=== PATIENT | male | born 1970 | race Hispanic/Latino ===

== ENCOUNTER 2018-08-25 18:05 | Inpatient (IN) | payer BC ==
[~2018-08-25] VITALS: Ht 162.6 cm; Wt 83.7 kg
[2018-08-25 18:38] LABS: BASOPHILS % 0.2 % (0.0-1.0); EOSINOPHILS # (AUTO) 0.2 (0.0-0.4); EOSINOPHILS % 1.1 % (0.0-6.0); HEMATOCRIT 48.1 % (38.2-49.6); HEMOGLOBIN 16.7 g/dL (14.0-18.0); LYMPHOCYTES # (AUTO) 1.8 (1.0-3.2); LYMPHOCYTES % 11.9 % (18.0-39.1); MEAN CORPUSCULAR HEMOGLOBIN 29.7 pg (28-32); MEAN CORPUSCULAR HGB CONC 34.7 g/dL (31-35); MEAN CORPUSCULAR VOLUME 85.4 fL (81-99); MONOCYTES # (AUTO) 0.7 (0.2-0.8); MONOCYTES % 4.4 % (4.4-11.3); NEUTROPHILS # (AUTO) 12.6 (2.1-6.9); PLATELET COUNT 309 x10e3/uL (140-360); RED BLOOD COUNT 5.63 x10e6/uL (4.3-5.7); RED CELL DISTRIBUTION WIDTH 12.7 % (11.7-14.4)
[2018-08-25 18:41] LABS: CLARITY,URINE HAZY (CLEAR); COLOR,URINE YELLOW (YELLOW); LEUKOCYTE ESTERASE ,URINE NEGATIVE (NEGATIVE); NITRITE,URINE NEGATIVE (NEGATIVE); PROTEIN,URINE DIPSTICK NEGATIVE (NEGATIVE)
[2018-08-25 18:42] LABS: BILIRUBIN,URINE NEGATIVE (NEGATIVE); KETONES,URINE NEGATIVE (NEGATIVE); URINE UROBILINOGEN 0.2 mg/dL (0.2 - 1)
[2018-08-25 18:44] LABS: BACTERIA,URINE FEW /HPF; EPITHELIAL CELLS,URINE FEW /LPF; RBC,URINE 0-5 /HPF (0-5); WBC,URINE (MAN) 0-5 /HPF (0-5)
[2018-08-25 18:58] LABS: ANION GAP 13.8 mmol/L (8-16); CALCIUM 9.8 mg/dL (8.4-10.2); CREATININE, SERUM 1.97 mg/dL (0.72-1.25); POTASSIUM 3.8 mmol/L (3.5-5.1)
[2018-08-25 18:59] LABS: MAGNESIUM 2.2 MG/DL (1.3-2.1)
[2018-08-25] MEDS ORDERED: SODIUM CHLORIDE 0.9% 1000ML 1,000 ML IV ONE (19:30)
[2018-08-25] MEDS ORDERED: IOPAMIDOL 370 MG/ML 200 ML INFUS..BTL INJ ONE (20:02)
[2018-08-25] MEDS ORDERED: SODIUM CHLORIDE 0.9% 50ML 50 ML ONE (20:02)
[2018-08-25] MEDS ORDERED: CIPROFLOXACIN 400 MG/D5W 200ML 200 ML IV STA (21:25)
[2018-08-25] MEDS ORDERED: ONDANSETRON HCL INJ 2MG/ML 2ML 2 MG/ML VIAL IV STA (21:27)
[2018-08-25] MEDS ORDERED: MORPHINE SULFATE INJ 4 MG/ML INJ 1ML IV STA (21:27)
[2018-08-25] MEDS ORDERED: DONNATAL/LIDOCAINE/MAALOX 30 ML SUSP PO ONE (21:30)
--- NOTE | 2018-08-25 21:42 | Diagnostic Imaging Report ---
EXAM: CT Abdomen and Pelvis WITH contrast INDICATION: ^ABD PAIN COMPARISON: None. TECHNIQUE: Abdomen and pelvis were scanned utilizing a multidetector helical scanner from the lung base to the pubic symphysis after administration of IV contrast. Coronal and sagittal reformations were obtained. Dose modulation, iterative reconstruction, and/or weight based adjustment of the mA/kV was utilized to reduce the radiation dose to as low as reasonably achievable. Routine protocol was performed. Scan was performed when during portal venous phase. IV CONTRAST: 100 mL of Isovue-370 ORAL CONTRAST: Water COMPLICATIONS: None RADIATION DOSE: Total DLP: 455.60 mGy*cm Estimated effective dose: (DLP x 0.015 x size factor) mSv CTDIvol has been reviewed. It is below the limits set by the Radiation Protocol Committee (RPC). FINDINGS: LINES and TUBES: None. LOWER THORAX: Unremarkable HEPATOBILIARY: No focal hepatic lesions. No biliary ductal dilation. GALLBLADDER: No radio-opaque stones or sludge. No wall thickening. SPLEEN: No splenomegaly. PANCREAS: No focal masses or ductal dilatation. ADRENALS: No adrenal nodules KIDNEYS/URETERS: Kidneys enhance symmetrically. No hydronephrosis. Mildly dilated left renal pelvis. No cystic or solid mass lesions. No stones. GI TRACT: No abnormal distention, wall thickening, or evidence of bowel obstruction. Colonic diverticulosis with mild pericolonic fat stranding in the left lower quadrant. There are also extraluminal scattered gas bubbles seen. Appendix is normal. PELVIC ORGANS/BLADDER: Unremarkable. LYMPH NODES: No lymphadenopathy. VESSELS: Unremarkable. Tortuous abdominal aorta. PERITONEUM / RETROPERITONEUM: No fluid. Small amount of pneumoperitoneum as described above. BONES: Bilateral L5 pars defects. Minimal anterolisthesis of L5 in relation to L4. SOFT TISSUES: Unremarkable. IMPRESSION: Microperforated diverticulitis. No evidence of abscess formation. Findings discussed with Dr. Caldera at 9:38 PM, on 08/25/2018. Signed by: Dr. Talib Robbins MD on 08/25/2018 9:38 PM
[2018-08-25] MEDS ORDERED: ACETAMINOPHEN 1000 MG/100 ML IV STA (21:51)
[2018-08-25] MEDS: SODIUM CHLORIDE 0.9% 1000ML 1,000 ML IV SCH (22:32)
[2018-08-25] MEDS: CEFEPIME 2 GM/NS 0.9% 100 ML 100 ML IV SCH (22:32)
[2018-08-25] MEDS: METRONIDAZOLE 500MG/NS 100ML 100 ML IV SCH (22:32)
--- OUTSIDE RECORDS SUMMARY | 2018-08-25 23:06 | XMS REPORT ---
Author [facility] Address Unknown Phone Unavailable Care Team Providers Care Tip Printer Name Role Phone Jayleen DALAL Unavailable Unavailable Problems This patient has no known problems. Allergies, Adverse Reactions, Alerts This patient has no known allergies or adverse reactions. Medications This patient has no known medications. Results Test Description Test Time Test Comments Text Results Atomic Results Result Comments CT ABDOMEN/PELVIS W 2018-08-25 21:28:00 [place] [id number] Patient Name: LOLITA HOLLIS MR #: [id number] : 1970 Age/Sex: 48/M Req #: [id number] [facility] Physician: Ordered by: ALISHA DALAL MD Report #: [id number] Location: ER Room/Bed: Procedure: [id number] CT/CT ABDOMEN/PELVIS W Exam Date: 08/25/18 Exam Time: 2052 REPORT STATUS: Signed EXAM: CT Abdomen and Pelvis WITH contrast INDICATION: ABD PAIN COMPARISON: None. TECHNIQUE: Abdomen and pelvis were scanned utilizing a multidetector helical scanner from the lung base to the pubic symphysis after administration of IV contrast. Coronal and sagittal reformations were obtained. Dose modulation, iterative reconstruction, and/or weight based adjustment of the mA/kV was utilized to reduce the radiation dose to as low as reasonably achievable. Routine protocol was performed. Scan was performed when during portal venous phase. IV CONTRAST: 100 mL of Isovue-370 ORAL CONTRAST: Water C OMPLICATIONS: None RADIATION DOSE: Total DLP: 455.60 mGy*cm Estimated effective dose: (DLP x 0.015 x size factor) mSv CTDIvol has been reviewed. It is below the limits set by the Radiation Protocol Committee (RPC). FINDINGS: LINES and TUBES: None. LOWER THORAX: Unremarkable HEPATOBILIARY: No focal hepatic lesions. No biliary ductal dilation. GALLBLADDER: No radio-opaque stones or sludge. No wall thickening. SPLEEN: No splenomegaly. PANCREAS: No focal masses or ductal dilatation. ADRENALS: No adrenal nodules KIDNEYS/URETERS: Kidneys enhance symmetrically. No hydronephrosis. Mildly dilated left renal pelvis. No cystic or solid mass lesions. No stones. GI TRACT: No abnormal distention, wall thickening, or evidence of bowel obstruction. Colonic diverticulosis with mild pericolonic fat stranding in the left lower quadrant. There are also extraluminal scattered gas bubbles seen. Appendix is normal. PELVIC ORGANS/BLADDER: Unremarkable. LYMPH NODES: No lymphadenopathy. VESSELS: Unremarkable. Tortuous abdominal aorta. PERITONEUM / RETROPERITONEUM: No fluid. Small amount of pneumoperitoneum as described above. BONES: Bilateral L5 pars defects. Minimal anterolisthesis of L5 in relation to L4. SOFT TISSUES: Unremarkable. IMPRESSION: Microperforated diverticulitis. No evidence of abscess formation. Findings discussed with Dr. Dalal at 9:38 PM, on 08/25/2018. Signed by: Dr. Talib King MD on 08/25/2018 9:38 PM Dictated By: TALIB KING MD 37 Transcribed By: KO on 08/25/182137 COPY TO: ALISHA DALAL MD
[2018-08-25 23:25] VITALS: BP 138/69
--- NOTE | 2018-08-25 23:30 | NUR ---
Received patient from ER. A&Ox4 & ambulatory w/o assist. Respirations even & unlabored, no distress noted. Patient is on NC @ 3L. IV to R AC 20g w/ fluids running. Patient c/o lower abdomen/pubic pain 07/25, refused any pain medication at this time. Will continue to monitor. Call light within reach, bed set to lowest position & side railsx2 raised. Family member at bedside.
--- NOTE | 2018-08-25 23:45 | NUR ---
Assisted patient to the bathroom, c/o severe onset pain to lower abdomen, 01/24, stated his pain gets worse w/ ambulation.
--- NOTE | 2018-08-25 23:50 | NUR ---
Assisted patient back to bed, patient was noted w/ facial grimacing & diaphoretic, also stated he was feeling hot and felt he was going to pass out. VS taken & WNL. Cool moist towel applied to forehead and pain medication was administered. Urinal was provided to reduce ambulation. Patient stated he hasn't felt like this since earlier today, he described the symptoms as sudden onset sharp razor like pains that radiates from his testicles up to his lower abdomen, he also stated he felt a burning sensation during urination. Patient stated Dr. Yeh is aware of these symptoms, it just doesn't happen as often. I did instruct patient to notify me if he felt his pain is different than before or is not managed with pain medication. Patient voices understanding.
[2018-08-25] MEDS: HYDROMORPHONE 2MG/ML 2 MG/ML ML IV PRN (23:55)
[2018-08-26 04:00] VITALS: BP 127/84
[2018-08-26] MEDS: HYDROMORPHONE 2MG/ML 2 MG/ML ML IV PRN ×7 (04:40→23:04)
[2018-08-26] MEDS: ONDANSETRON HCL INJ 2MG/ML 2ML 2 MG/ML VIAL IV PRN ×3 (04:40→19:36)
[2018-08-26] MEDS: METRONIDAZOLE 500MG/NS 100ML 100 ML IV SCH ×3 (05:56→18:05)
[2018-08-26 06:03] LABS: BASOPHILS % 0.2 % (0.0-1.0); EOSINOPHILS % 0.1 % (0.0-6.0); HEMATOCRIT 40.6 % (38.2-49.6); HEMOGLOBIN 13.9 g/dL (14.0-18.0); LYMPHOCYTES # (AUTO) 1.7 (1.0-3.2); LYMPHOCYTES % 8.3 % (18.0-39.1); MEAN CORPUSCULAR HEMOGLOBIN 29.7 pg (28-32); MEAN CORPUSCULAR HGB CONC 34.2 g/dL (31-35); MEAN CORPUSCULAR VOLUME 86.8 fL (81-99); NEUTROPHILS % 85.6 % (38.7-80.0); PLATELET COUNT 246 x10e3/uL (140-360); RED BLOOD COUNT 4.68 x10e6/uL (4.3-5.7); RED CELL DISTRIBUTION WIDTH 12.8 % (11.7-14.4)
--- NOTE | 2018-08-26 06:21 | NUR ---
Paged Dr. Yeh to update on patient status
[2018-08-26 06:36] LABS: ALBUMIN 3.3 g/dL (3.5-5.0); ANION GAP 11.3 mmol/L (8-16); CALCIUM 8.9 mg/dL (8.4-10.2); CREATININE, SERUM 1.65 mg/dL (0.72-1.25); POTASSIUM 4.3 mmol/L (3.5-5.1)
[2018-08-26] MEDS ORDERED: HYDROMORPHONE 1MG/1ML INJ IV PRN (07:45)
[2018-08-26 08:00] VITALS: BP 160/77
[2018-08-26] MEDS: SODIUM CHLORIDE 0.9% 1000ML 1,000 ML IV SCH ×2 (09:00→19:04)
[2018-08-26] MEDS: CEFEPIME 2 GM/NS 0.9% 100 ML 100 ML IV SCH ×2 (11:05→22:15)
[2018-08-26 11:24] VITALS: BP 160/77
--- NOTE | 2018-08-26 11:24 | NUR ---
patient resting in bed, still have strong pain upper abdomen, medicated with PRN pain med, not in any distress. at bed side, Dr Felix had rounds
[2018-08-26 11:47] VITALS: BP 161/86
[2018-08-26] MEDS: ACETAMINOPHEN 325 MG TAB PO PRN (11:47)
[2018-08-26 16:00] VITALS: BP 135/76
[2018-08-26] MEDS: FAMOTIDINE 20 MG/2 ML VIAL IV SCH (16:50)
--- NOTE | 2018-08-26 17:18 | Consultation ---
DATE OF CONSULTATION: 08/26/2018 CHIEF COMPLAINT: Abdominal pain. HISTORY OF PRESENT ILLNESS: The patient is a 48-year-old male with 2-day history of sudden onset of abdominal pain, lower abdomen, radiating down to the testicle. The patient had nausea, but no vomiting, no diarrhea. Subjective fever. PAST MEDICAL HISTORY: Unremarkable. PAST SURGICAL HISTORY: No previous surgery. ALLERGIES: THE PATIENT HAS NO DRUG ALLERGIES. SOCIAL HABITS: He denies smoking, alcohol abuse. REVIEW OF SYSTEMS: No chest pain or shortness of breath. PHYSICAL EXAMINATION: VITAL SIGNS: Stable. Low-grade temperature 100. GENERAL: He is awake, alert, in moderate discomfort. HEENT: Sclera anicteric. NECK: Supple. LUNGS: Clear. HEART: Regular rate and rhythm. ABDOMEN: Mildly distended with guarding, tenderness and rebound in the lower abdomen, more on the left than the right. LABORATORY DATA: White cell count 19,000, hemoglobin of 14, and creatinine 1.5. CT scan show left lower quadrant diverticulitis with extraluminal gas bubbles suggestive of microperforation. ASSESSMENT: Perforated diverticulitis with no abscess as yet. PLAN: IV hydration, antibiotics. We will follow. Best Yeh MD DNVinicio/MODL /[id number]
--- NOTE | 2018-08-26 18:20 | NUR ---
patient resting in bed, still have on pain 09/24, paged to enquire Dr Yeh regarding any procedure tomorrow
[2018-08-26 20:00] VITALS: BP_SYST 135; BP_SYST 143; BP_DIAS 76; BP_DIAS 91
--- NOTE | 2018-08-26 20:00 | NUR ---
INITIAL ASSESSMENT COMPLETE, CALL LIGHT IN REACH, FAMILY AT BEDSIDE, PT EYES CLOSED, STATES PAIN 9/10, BURNING IN ABD, PAIN MEDICATIONS GIVEN, ZOFRAN GIVEN FOR NAUSEA, SKIN INTACT, IV INFUSING, NO EDEMA NOTED, NO OTHER NEEDS
--- NOTE | 2018-08-26 23:45 | NUR ---
PT HAS TEMP OF 103.0, CALLED [facility] TO GET ORDERS FOR TYLENOL IV, PT IS NPO
[2018-08-27] VITALS (7 sets, daily range): BP systolic 158–190; BP diastolic 86–97
[2018-08-27] MEDS: HYDRALAZINE HCL 20 MG/ML VIAL IV PRN ×5 (00:50→18:38)
[2018-08-27] MEDS: HYDROMORPHONE 2MG/ML 2 MG/ML ML IV PRN ×4 (04:45→21:59)
--- NOTE | 2018-08-27 04:45 | NUR ---
PT AWAKE NOW, SEVERE PAIN TO RIGHT SIDE OF RIB CAGE, STATES IT IS BURNING, THROBBING, NOT A SHARP PAIN, O2 SAT 96% ON ROOM AIR, LUNG SOUNDS CLEAR, TOLD TO RELAX AND TAKE DEEP BREATHS, IV INFUSING.
[2018-08-27] MEDS: SODIUM CHLORIDE 0.9% 1000ML 1,000 ML IV SCH (04:46)
[2018-08-27] MEDS: METRONIDAZOLE 500MG/NS 100ML 100 ML IV SCH ×5 (05:44→23:53)
[2018-08-27 06:14] LABS: BASOPHILS % 0.2 % (0.0-1.0); EOSINOPHILS # (AUTO) 0.1 (0.0-0.4); EOSINOPHILS % 0.3 % (0.0-6.0); HEMATOCRIT 42.3 % (38.2-49.6); HEMOGLOBIN 13.8 g/dL (14.0-18.0); LYMPHOCYTES % 5.9 % (18.0-39.1); MEAN CORPUSCULAR HEMOGLOBIN 29.3 pg (28-32); MEAN CORPUSCULAR HGB CONC 32.6 g/dL (31-35); MEAN CORPUSCULAR VOLUME 89.8 fL (81-99); MONOCYTES # (AUTO) 0.8 (0.2-0.8); MONOCYTES % 4.7 % (4.4-11.3); NEUTROPHILS # (AUTO) 14.7 (2.1-6.9); NEUTROPHILS % 88.4 % (38.7-80.0); PLATELET COUNT 217 x10e3/uL (140-360); RED BLOOD COUNT 4.71 x10e6/uL (4.3-5.7); RED CELL DISTRIBUTION WIDTH 12.7 % (11.7-14.4)
[2018-08-27 06:29] LABS: ANION GAP 13.6 mmol/L (8-16); CREATININE, SERUM 1.32 mg/dL (0.72-1.25); MAGNESIUM 1.7 MG/DL (1.3-2.1); POTASSIUM 3.6 mmol/L (3.5-5.1)
[2018-08-27 06:45] LABS: B-TYPE NATRIURETIC PEPTIDE2 61.6 pg/mL (0-100)
--- NOTE | 2018-08-27 06:46 | NUR ---
PT EASILY AWAKE, NO DISTRESS NOTED AT THIS TIME, IV INFUSING, VS STABLE, CALL LIGHT IN REACH
--- NOTE | 2018-08-27 07:50 | NUR ---
PATIENT IN BED RESTING WITH NO RESPIRATORY DISTRESS. C/O PAIN TO ABDOMEN, PAIN MEDICATION GIVEN ORDERED. BED IN LOWER POSITION, CALL LIGHT AT REACH.
[2018-08-27] MEDS: FAMOTIDINE 20 MG/2 ML VIAL IV SCH ×2 (07:56→16:30)
[2018-08-27] MEDS ORDERED: ACETAMINOPHEN 1000 MG/100 ML IV NR (08:00)
[2018-08-27] MEDS ORDERED: DIATRIZOATE MEGL/DIATRIZOA SOD 30 ML BTL PO ONE (08:11)
--- NOTE | 2018-08-27 09:29 | Diagnostic Imaging Report ---
EXAMINATION: CT of the abdomen and pelvis with contrast. TECHNIQUE: Spiral CT images of the abdomen and pelvis were performed from the lung bases to the lesser trochanters after the intravenous administration of 100 cc Isovue-370. Coronal and sagittal reformatted images were obtained. COMPARISON: CT abdomen and pelvis with contrast 08/25/2018 CLINICAL HISTORY:Perforated diverticulitis DISCUSSION: ABDOMEN/PELVIS: LOWER THORAX:Minimal linear atelectasis in the lingula and dependent lower lobes. HEPATOBILIARY: No focal hepatic lesions. No intra-or extrahepatic biliary ductal dilation. The gallbladder is normal. SPLEEN: No splenomegaly. PANCREAS: No focal masses or ductal dilatation. ADRENALS: No adrenal nodules. KIDNEYS/URETERS: No hydronephrosis, stones, or solid mass lesions. PELVIC ORGANS/BLADDER: Urinary bladder, prostate, and seminal vesicles appear normal. PERITONEUM/RETROPERITONEUM: Substantial interval increase in pneumoperitoneum relative to 08/25/2018, with multiple foci of free air along the anterior hepatic margin and anterior aspect of the peritoneal cavity. There is an irregularly shaped extraluminal collection of gas along the previously described inflamed segment of sigmoid colon measuring approximately 5 cm transversely as seen on series 2 image 60. Trace free pelvic fluid. LYMPH NODES: No pelvic sidewall, retroperitoneal, or mesenteric lymphadenopathy. VESSELS: Abdominal aorta, major branch vessels, and iliac arterial systems are well-visualized and patent. Portal vein, splenic vein, and central superior mesenteric vein are patent. GI TRACT: Wall thickening and adjacent inflammation of the sigmoid colon, with marked interval increase in pneumoperitoneum as discussed above. Regional inflammatory change has also markedly increased, with concentric wall thickening of distal loops of ileum in the right lower quadrant, for example on series 2 image 64. Inflammatory fat stranding extending superiorly towards the mesenteric root has also worsened. No discrete, drainable fluid collection. BONES AND SOFT TISSUE: Bilateral L5 pars interarticularis defects again noted. No soft tissue abnormalities. IMPRESSION: Perforated sigmoid diverticulitis with marked interval increase in pneumoperitoneum and reactive low abdominal inflammation relative to 08/25/2018, now involving multiple loops of distal ileum. No drainable abscess. Findings were discussed by telephone with Dr. Yeh at 9:20 AM 08/27/2018. Signed by: Dr. Best Santos M.D. on 08/27/2018 9:26 AM
[2018-08-27] MEDS: CEFEPIME 2 GM/NS 0.9% 100 ML 100 ML IV SCH ×2 (11:00→21:45)
--- NOTE | 2018-08-27 11:18 | NUR ---
CALL RECEIVED FROM DR WOLFE STATING THAT PATIENT WILL HAVE SURGERY THIS AFTERNOON. PATIENT NOTIFIED, CONSENT SIGNED. IN BED WITH CALL LIGHT AT REACH.
[2018-08-27] MEDS: ONDANSETRON HCL INJ 2MG/ML 2ML 2 MG/ML VIAL IV PRN ×2 (13:57→21:59)
--- NOTE | 2018-08-27 14:15 | NUR ---
PATIENT OFF UNIT TO OR.
[2018-08-27] MEDS ORDERED: ACETAMINOPHEN 1000 MG/100 ML 100 ML IV ONE (15:18)
[2018-08-27] MEDS ORDERED: GLYCOPYRROLATE INJ 1MG/ 5 ML SYR ONE (18:15)
[2018-08-27] MEDS ORDERED: NEOSTIGMINE 5 MG/5ML SYR ONE (18:15)
[2018-08-27] MEDS ORDERED: DEXAMETHASONE SOD PHOS INJ 4 MG/ML VIAL ONE (18:15)
[2018-08-27] MEDS ORDERED: SEVOFLURANE INHAL SOLN 250 ML PEN BTL ONE (18:15)
[2018-08-27] MEDS ORDERED: ROCURONIUM BROMIDE 10 MG/ML 5ML VIAL ONE (18:15)
[2018-08-27] MEDS ORDERED: ACETAMINOPHEN 1000 MG/100 ML IV ONE ×2 (18:15)
[2018-08-27] MEDS ORDERED: PROPOFOL IV EMULSION 10 MG/ML 20 ML VIAL ONE (18:15)
[2018-08-27] MEDS ORDERED: ONDANSETRON HCL INJ 2MG/ML 2ML 2 MG/ML VIAL ONE (18:15)
[2018-08-27] MEDS ORDERED: PHENYLEPHRINE HCL 1% 10 MG/ML VIAL ONE (18:15)
[2018-08-27] MEDS ORDERED: LIDOCAINE HCL 2% LOCAL INJ 5 ML SDV VIAL INJ ONE (18:15)
[2018-08-27] MEDS ORDERED: CEFOXITIN SOD 1 GM VIAL ONE (18:15)
[2018-08-27] MEDS ORDERED: SUCCINYLCHOLINE 200 MG/10 ML SYR ONE (18:15)
--- NOTE | 2018-08-27 18:23 | NUR ---
PATIENT BACK TO UNIT FROM OR. REPORT RECEIVED FROM HAVEN BORJAS. PATIENT HAD A OPEN SIGMOID COLON RESECTION. ZAINAB DRAIN TO RIGHT ABDOMEN, JACIEL TO MID ABDOMEN, AND COLLECTOMY TO LEFT ABDOMEN. DRESSING DRY AND INTACT TO ABDOMEN. ABDOMEN SOFT, DENIED PAIN AT THIS TIME. MOSES CATHETER DRAINING CLEAR YELLOW URINE, NG TUBE TO RIGHT NOSTRIL CONNECTED TO LOW SUCTION. V/S 99.9-94-18-166/89 AND 95% AT 2L VIA N/C
[2018-08-27] MEDS ORDERED: IOPAMIDOL 370 MG/ML 200 ML INFUS..BTL INJ ONE (19:13)
[2018-08-27] MEDS ORDERED: SODIUM CHLORIDE 0.9% 50ML 50 ML ONE (19:13)
--- NOTE | 2018-08-27 22:55 | Consultation ---
DATE OF CONSULTATION: HISTORY OF PRESENT ILLNESS: This patient is a 48-year-old white male, who comes in with abdominal pain, which he had for a few days, getting progressively worse, and has fever and chills. The patient came in here, CT scan was done, and was found to have diverticulitis, perforated, and the pain was getting worse. A repeat CT scan showed there is an abscess, so he is going for surgery. The patient is currently on metronidazole and cefepime. PAST MEDICAL HISTORY: Denies. PAST SURGICAL HISTORY: Denies. ALLERGIES: ALLERGY TO PENICILLIN, BUT HE IS DOING WELL ON CEFEPIME. SOCIAL HISTORY: There is no smoking, drug abuse, or alcohol abuse. FAMILY HISTORY: Otherwise, unremarkable. PHYSICAL EXAMINATION: GENERAL: He is currently alert, oriented, does not seem in acute distress. VITAL SIGNS: Stable. Currently afebrile. HEENT: Normocephalic, not icteric. NECK: Supple. CHEST: Clear. HEART: S1 and S2. ABDOMEN: Soft. Diffuse tenderness. IMPRESSION: Diverticulitis with ruptured cefepime. We will await blood cultures. Await intraoperative cultures. Further recommendations to follow. MD PEDRO Dudley/NETO /[id number]
--- NOTE | 2018-08-27 23:39 | Operative Report ---
DATE OF PROCEDURE: 08/27/2018 SURGEON: Best Yeh MD PREOPERATIVE DIAGNOSIS: Perforated sigmoid diverticulitis. POSTOPERATIVE DIAGNOSIS: Perforated sigmoid diverticulitis. PROCEDURE: Sigmoid resection with end colostomy. GLOBAL CEO: None. ANESTHESIA: General. INDICATION FOR SURGERY: A 48-year-old male with abdominal pain for four days with CT scan evidence of a perforated sigmoid diverticulitis. The patient was placed on IV antibiotics for two days with persistent pain and fevers, which are worsening. Repeat CT scan showed increase fluid in the pelvis with worsening diverticulitis. The patient consented for sigmoid resection with possible end colostomy. DESCRIPTION OF THE PROCEDURE: The patient was brought to OR intubated. Abdomen was prepped and draped in sterile fashion. A supraumbilical incision is made and a 5 minute port inserted. Insufflation began. Laparoscopy examination revealed dilated loops of small bowel in the pelvis with purulent material seen in the pelvic cavity. At this point, the lower midline incision is then made going through the fascia entering the peritoneal cavity. The sigmoid colon is mobilized and there is perforation anteriorly in the sigmoid colon with spillage of fecal material and exudate in the pelvis. We proceeded to mobilize the sigmoid colon and transect the sigmoid colon proximal and distally with the BARBIE stapler and the mesentery with the LigaSure instrument. We then proceeded to wash out the pelvic and abdominal cavity of all contaminating fluid and pus. Loops of intestine, which is adherent to each other and partially obstructed without straightened out. There is some fibrin, no exudate on the bowel wall, which is removed. We then proceeded to perform a left lower quadrant colostomy opening by taking an ellipse of skin and subcu tissue in the left lower quadrant through the rectus muscle and the fascia was opened in a cruciate fashion. The underlying muscles split and posterior fascia opened in transverse direction. The left descending colon has been mobilized by dividing the white line of Toldt is then exteriorized to the ostomy site. A 19-[place] Collin drain placed in the pelvis and taken out through a separate stab wound incision in the right lower quadrant. The omentum was brought to cover the pelvic area. Fascia closure with a running #1 PDS and 0 Vicryl. Skin closed with staple. We then matured the ostomy site leak. Eversion of the colonic and to the skin with 3-0 Vicryl interrupted stitches. The ostomy bag is placed. The patient is then extubated, transported to recovery room. ESTIMATED BLOOD LOSS: 50 mL. MD ALVA Baird/NETO /[id number]
[2018-08-28] VITALS (10 sets, daily range): BP systolic 158–195; BP diastolic 79–97
[2018-08-28] MEDS: HYDROMORPHONE 2MG/ML 2 MG/ML ML IV PRN ×6 (01:16→20:11)
[2018-08-28] MEDS: ONDANSETRON HCL INJ 2MG/ML 2ML 2 MG/ML VIAL IV PRN ×3 (02:13→20:11)
[2018-08-28] MEDS: HYDRALAZINE HCL 20 MG/ML VIAL IV PRN ×4 (04:27→20:10)
[2018-08-28 06:19] LABS: BASOPHILS % 0.1 % (0.0-1.0); HEMATOCRIT 38.9 % (38.2-49.6); HEMOGLOBIN 13.1 g/dL (14.0-18.0); LYMPHOCYTES # (AUTO) 0.7 (1.0-3.2); LYMPHOCYTES % 4.4 % (18.0-39.1); MEAN CORPUSCULAR HEMOGLOBIN 29.3 pg (28-32); MEAN CORPUSCULAR HGB CONC 33.7 g/dL (31-35); MONOCYTES # (AUTO) 0.7 (0.2-0.8); MONOCYTES % 3.9 % (4.4-11.3); NEUTROPHILS # (AUTO) 15.5 (2.1-6.9); NEUTROPHILS % 90.9 % (38.7-80.0); PLATELET COUNT 231 x10e3/uL (140-360); RED BLOOD COUNT 4.47 x10e6/uL (4.3-5.7); RED CELL DISTRIBUTION WIDTH 13.2 % (11.7-14.4)
[2018-08-28 06:37] LABS: ANION GAP 11.9 mmol/L (8-16); BLOOD UREA NITROGEN 12 mg/dL (7-26); BUN/CREATININE RATIO 10 (6-25); CALCIUM 9.4 mg/dL (8.4-10.2); CARBON DIOXIDE 23 mmol/L (22-29); CHLORIDE 105 mmol/L (98-107); CREATININE, SERUM 1.15 mg/dL (0.72-1.25); EST GLOMERULAR FILTRATION RATE > 60 ML/MIN (60-); GLUCOSE 116 mg/dL (74-118); MAGNESIUM 2.1 MG/DL (1.3-2.1); POTASSIUM 3.9 mmol/L (3.5-5.1); SODIUM 136 mmol/L (136-145)
[2018-08-28] MEDS: METRONIDAZOLE 500MG/NS 100ML 100 ML IV SCH ×3 (07:12→18:35)
--- NOTE | 2018-08-28 07:35 | NUR ---
PATIENT IN BED RESTING WITH S/S OF DISTRESS. C/O PAIN TO ABDOMEN, PAIN MEDICATION GIVEN ORDERED. ZAINAB DRAIN TO RIGHT ABDOMEN, JACIEL TO MID ABDOMEN AND COLOSTOMY BAG TO LEFT ABDOMEN. DRESSING DRY AND INTACT TO ABDOMEN. MOSES CATHETER DRAINING CLEAR YELLOW URINE. NG TUBE DRAINING GREENISH FLUID. IV FLUID IN PROGRESS. BED IN LOWER POSITION, CALL LIGHT AT REACH. FAMILY AT BED SIDE.
[2018-08-28] MEDS: FAMOTIDINE 20 MG/2 ML VIAL IV SCH ×2 (07:51→16:54)
[2018-08-28] MEDS: SODIUM CHLORIDE 0.9% 1000ML 1,000 ML IV SCH (08:30)
[2018-08-28] MEDS: CEFEPIME 2 GM/NS 0.9% 100 ML 100 ML IV SCH ×2 (10:10→21:41)
[2018-08-28] MEDS ORDERED: LORAZEPAM INJ 2 MG/ML VIAL IV PRN (11:00)
--- NOTE | 2018-08-28 11:13 | NUR ---
PATIENT C/O NAUSEA, PRN ZOFRAN GIVEN. PATIENT STATED THAT HE IS FEELING BETTER AT THIS TIME.
--- NOTE | 2018-08-28 15:38 | NUR ---
MOSES CATHETER DISCONTINUED ORDERED. PATIENT IS ON IV FLUID, DUE TO VOID. AMBULATED TO THE RESTROOM AND BACK TO BED. CALL LIGHT AT REACH.
--- NOTE | 2018-08-28 18:28 | NUR ---
120 CC OF SEROSANGUINEOUS FLUID REMOVED FROM ZAINAB DRAIN. PATIENT IN BED WITH CALL LIGHT AT REACH.
--- NOTE | 2018-08-28 19:30 | NUR ---
pt voided 200ml dark yellow urine into urinal
[2018-08-29] VITALS (7 sets, daily range): BP systolic 163–199; BP diastolic 84–96
[2018-08-29] MEDS: HYDRALAZINE HCL 20 MG/ML VIAL IV PRN ×5 (00:15→21:55)
[2018-08-29] MEDS: METRONIDAZOLE 500MG/NS 100ML 100 ML IV SCH ×4 (00:33→18:00)
[2018-08-29] MEDS: HYDROMORPHONE 2MG/ML 2 MG/ML ML IV PRN ×3 (00:33→07:57)
[2018-08-29] MEDS: SODIUM CHLORIDE 0.9% 1000ML 1,000 ML IV SCH (01:45)
[2018-08-29] MEDS: ONDANSETRON HCL INJ 2MG/ML 2ML 2 MG/ML VIAL IV PRN (04:02)
[2018-08-29 06:45] LABS: BASOPHILS % 0.1 % (0.0-1.0); EOSINOPHILS % 0.1 % (0.0-6.0); HEMATOCRIT 36.2 % (38.2-49.6); HEMOGLOBIN 12.5 g/dL (14.0-18.0); LYMPHOCYTES # (AUTO) 1.1 (1.0-3.2); LYMPHOCYTES % 8.2 % (18.0-39.1); MEAN CORPUSCULAR HEMOGLOBIN 29.8 pg (28-32); MEAN CORPUSCULAR HGB CONC 34.5 g/dL (31-35); MEAN CORPUSCULAR VOLUME 86.4 fL (81-99); MONOCYTES # (AUTO) 0.9 (0.2-0.8); MONOCYTES % 6.5 % (4.4-11.3); NEUTROPHILS # (AUTO) 11.6 (2.1-6.9); NEUTROPHILS % 84.4 % (38.7-80.0); PLATELET COUNT 303 x10e3/uL (140-360); RED BLOOD COUNT 4.19 x10e6/uL (4.3-5.7); RED CELL DISTRIBUTION WIDTH 13.7 % (11.7-14.4)
[2018-08-29 07:14] LABS: ANION GAP 9.2 mmol/L (8-16); BLOOD UREA NITROGEN 14 mg/dL (7-26); BUN/CREATININE RATIO 14 (6-25); CALCIUM 8.8 mg/dL (8.4-10.2); CARBON DIOXIDE 24 mmol/L (22-29); CHLORIDE 107 mmol/L (98-107); CREATININE, SERUM 0.99 mg/dL (0.72-1.25); EST GLOMERULAR FILTRATION RATE > 60 ML/MIN (60-); GLUCOSE 112 mg/dL (74-118); MAGNESIUM 2.2 MG/DL (1.3-2.1); POTASSIUM 3.2 mmol/L (3.5-5.1); SODIUM 137 mmol/L (136-145)
--- NOTE | 2018-08-29 07:30 | NUR ---
Pt in bed aox4 and able to verbalize needs. NGtube to right nare in place and patent. It is connected to continuous suction. Dressing to midabdomen is dry and intact. ZAINAB drain to RLQ is with serosanguineous fluid.
[2018-08-29] MEDS: FAMOTIDINE 20 MG/2 ML VIAL IV SCH ×2 (07:55→16:13)
[2018-08-29] MEDS: ACETAMINOPHEN 325 MG TAB PO PRN ×2 (08:05→14:16)
[2018-08-29] MEDS ORDERED: AMLODIPINE BESYLATE 10 MG TAB PO SCH (09:00)
[2018-08-29] MEDS: CEFEPIME 2 GM/NS 0.9% 100 ML 100 ML IV SCH ×2 (09:06→21:55)
--- NOTE | 2018-08-29 09:30 | NUR ---
NGtube removed per physician orders. Pt is to remain NPO with small sips of water and ice chips.
[2018-08-29] MEDS ORDERED: POTASSIUM CHLORIDE 20MEQ/100ML 200 ML IV ONE (10:15)
[2018-08-29] MEDS ORDERED: D5NS/KCL 20MEQ 1,000 ML IV SCH (10:30)
[2018-08-29] MEDS: HYDROCODONE/APAP 5MG-325MG TAB PO PRN ×2 (16:31→22:33)
[2018-08-29] MEDS: HYDROCHLOROTHIAZIDE 25 MG TAB PO SCH (16:34)
--- NOTE | 2018-08-29 18:40 | NUR ---
Pt in bed. Continues on IVF at 50ml/hr and well tolerated. Pt states headache has improved since new medications was given. ZAINAB drain to right LQ had 30ml serosanguineous fluid.
[2018-08-30] VITALS (8 sets, daily range): BP systolic 134–178; BP diastolic 82–96
[2018-08-30] MEDS: METRONIDAZOLE 500MG/NS 100ML 100 ML IV SCH ×4 (00:41→17:13)
[2018-08-30] MEDS: HYDROCODONE/APAP 5MG-325MG TAB PO PRN ×2 (05:55→14:34)
[2018-08-30 06:30] LABS: BASOPHILS % 0.3 % (0.0-1.0); EOSINOPHILS # (AUTO) 0.1 (0.0-0.4); EOSINOPHILS % 0.6 % (0.0-6.0); HEMATOCRIT 39.1 % (38.2-49.6); HEMOGLOBIN 13.7 g/dL (14.0-18.0); LYMPHOCYTES # (AUTO) 1.2 (1.0-3.2); LYMPHOCYTES % 12.2 % (18.0-39.1); MEAN CORPUSCULAR HEMOGLOBIN 29.7 pg (28-32); MEAN CORPUSCULAR VOLUME 84.8 fL (81-99); MONOCYTES # (AUTO) 0.9 (0.2-0.8); MONOCYTES % 9.5 % (4.4-11.3); NEUTROPHILS # (AUTO) 7.2 (2.1-6.9); NEUTROPHILS % 76.4 % (38.7-80.0); PLATELET COUNT 332 x10e3/uL (140-360); RED BLOOD COUNT 4.61 x10e6/uL (4.3-5.7); RED CELL DISTRIBUTION WIDTH 13.4 % (11.7-14.4)
[2018-08-30 06:55] LABS: ANION GAP 11.9 mmol/L (8-16); BLOOD UREA NITROGEN 11 mg/dL (7-26); BUN/CREATININE RATIO 13 (6-25); CALCIUM 9.4 mg/dL (8.4-10.2); CARBON DIOXIDE 26 mmol/L (22-29); CHLORIDE 100 mmol/L (98-107); CREATININE, SERUM 0.86 mg/dL (0.72-1.25); EST GLOMERULAR FILTRATION RATE > 60 ML/MIN (60-); GLUCOSE 109 mg/dL (74-118); MAGNESIUM 2.2 MG/DL (1.3-2.1); SODIUM 135 mmol/L (136-145)
[2018-08-30 07:02] LABS: POTASSIUM 2.9 mmol/L (3.5-5.1)
--- NOTE | 2018-08-30 07:15 | NUR ---
The pt. was received in bed awake and alert with iv fluids infusing well. He questions when he will be allowed to eat and was advised that it is dependent upon the dr's evaluation and his bowel functionality. The pt. was given information about after care for the colostomy printed.
[2018-08-30] MEDS: FAMOTIDINE 20 MG/2 ML VIAL IV SCH ×2 (07:30→17:13)
[2018-08-30] MEDS ORDERED: POTASSIUM CHLORIDE 20MEQ/100ML 100 ML IV ONE ×2 (08:00→10:00)
[2018-08-30] MEDS: HYDROCHLOROTHIAZIDE 25 MG TAB PO SCH ×2 (08:52→17:13)
[2018-08-30] MEDS ORDERED: NIFEDIPINE CR 30 MG TAB PO SCH (09:00)
--- NOTE | 2018-08-30 10:00 | NUR ---
Dr. Yeh visited and diet increase received.
--- NOTE | 2018-08-30 11:00 | NUR ---
The pt. called to report pain at the iv site and for dressing Addendum: 08/30/18 at 1144 by Merari Elmore RN cont'd change. The dressing was changed at the incision and drain site. Th iv was re-sited to the right forearm
[2018-08-30] MEDS: CEFEPIME 2 GM/NS 0.9% 100 ML 100 ML IV SCH ×2 (11:39→22:15)
[2018-08-30] MEDS: HYDRALAZINE HCL 20 MG/ML VIAL IV PRN (11:39)
--- NOTE | 2018-08-30 11:44 | NUR ---
B/p reported 178 and was medicate for the same.
--- NOTE | 2018-08-30 13:30 | NUR ---
The pt. c/o headache and bp rechecked 162/94, th pt. was given norco and will continue to monitor the pt.
--- NOTE | 2018-08-30 16:12 | NUR ---
The pt's colostomy was leaking form the distal edge and was changed with pt. and family teaching initiated.
[2018-08-30] MEDS ORDERED: FENTANYL CITRATE/PF 100MCG/2 ML INJ ONE (17:16)
[2018-08-30] MEDS ORDERED: MIDAZOLAM HCL 2 MG/2 ML VIAL ONE (17:16)
--- NOTE | 2018-08-30 17:39 | NUR ---
Nutrition Screen Note RD Recommendation for Physician: -Rec ADAT to GI soft diet -RD provided education on low fiber diet (08/30). Plan of Care: RD following, monitoring for tolerance and adequacy, diet education Nutrition reason for involvement: NPO/ clear liquid x 5 days Primary Diagnose(s): Perforated sigmoid diverticulitis PMH: None Ht: 64in Wt: 183.56lb BMI: 31.5kg/m2 IBW: 130lb RD Assessment: (08/30) Chart reviewed. Labs and meds reviewed. 48yo M, who was admitted for abdominal pain. Abd/ pel CT showed perforated sigmoid diverticulitis. Colostomy bag was placed. NPO/clear liquid day 5. Visited pt in the room. Pt tolerated clear liquid. No complains of nausea or vomiting. Pt denied any chewing or swallowing difficulty. 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 RD provided education on low fiber diet; pt and verbalized understanding. Will continue to monitor and follow. Current Diet: clear liquid diet Malnutrition Evaluation (08/30) The patient does not meet criteria for a specified degree of malnutrition at this time. Will re-evaluate at follow-up as appropriate. Diet Education Needs Assessment: Diet education indicated, pt was agreeable. Learner(s): pt and Time spent: 30minutes Barriers: No barriers identified. Cultural/Language Modifications: No cultural/language modifications noted. Pt and speak Kuwaiti. Readiness: Pt eager to learn. Method: Handouts, explanation Topics: Colostomy nutrition therapy (low fiber diet, hydration, foods that cause gas/ odor/ diarrhea) Understanding/Compliance: Expect good understanding/compliance from pt. Will benefit from reinforcement. All questions have been answered. Nutrition Care Level: mod Signed: Caitlin Laura, , RD, LD
--- NOTE | 2018-08-30 19:20 | NUR ---
Patient visited in room during nursing rounds. Patient alert and oriented x3. No distress or discomfort noted. On scheduled IV antibiotics. S/P colon resection with Left colostomy. Dressing on abd clean and dry. ZAINAB drain noted on RLQ abd. Call herring within reach. Will monitor closely.
[2018-08-30] MEDS ORDERED: SODIUM CHLORIDE 0.9% 250ML 250 ML ONE (22:18)
[2018-08-31] VITALS (8 sets, daily range): BP systolic 128–168; BP diastolic 73–85
[2018-08-31] MEDS: METRONIDAZOLE 500MG/NS 100ML 100 ML IV SCH ×5 (00:14→23:13)
--- NOTE | 2018-08-31 02:10 | NUR ---
Patient complained of some pressure on area of colostomy. Colostomy bag appear full of gas. Bag was decompressed and gas was released. Pt stated felt some relief after gas was released.
[2018-08-31 05:44] LABS: BASOPHILS % 0.4 % (0.0-1.0); EOSINOPHILS # (AUTO) 0.2 (0.0-0.4); EOSINOPHILS % 2.3 % (0.0-6.0); HEMATOCRIT 40.4 % (38.2-49.6); HEMOGLOBIN 14.2 g/dL (14.0-18.0); LYMPHOCYTES # (AUTO) 1.6 (1.0-3.2); LYMPHOCYTES % 15.6 % (18.0-39.1); MEAN CORPUSCULAR HEMOGLOBIN 29.7 pg (28-32); MEAN CORPUSCULAR HGB CONC 35.1 g/dL (31-35); MEAN CORPUSCULAR VOLUME 84.5 fL (81-99); MONOCYTES # (AUTO) 1.1 (0.2-0.8); MONOCYTES % 10.6 % (4.4-11.3); NEUTROPHILS # (AUTO) 6.8 (2.1-6.9); NEUTROPHILS % 67.3 % (38.7-80.0); PLATELET COUNT 393 x10e3/uL (140-360); RED BLOOD COUNT 4.78 x10e6/uL (4.3-5.7); RED CELL DISTRIBUTION WIDTH 13.1 % (11.7-14.4)
[2018-08-31 06:17] LABS: BLOOD UREA NITROGEN 12 mg/dL (7-26); BUN/CREATININE RATIO 11 (6-25); CALCIUM 9.6 mg/dL (8.4-10.2); CARBON DIOXIDE 27 mmol/L (22-29); CHLORIDE 99 mmol/L (98-107); CREATININE, SERUM 1.14 mg/dL (0.72-1.25); EST GLOMERULAR FILTRATION RATE > 60 ML/MIN (60-); GLUCOSE 116 mg/dL (74-118); MAGNESIUM 2.2 MG/DL (1.3-2.1); SODIUM 136 mmol/L (136-145)
--- NOTE | 2018-08-31 07:10 | NUR ---
PATIENT IS IN STABLE CONDITION WITH NO S/S OF RESPIRATORY DISTRESS. NO PAIN VOICED. IV ANTIBIOTICS INFUSING. COLOSTOMY TO LLQ AND ZAINAB DRAIN TO RLQ; INCISION WITH JÚNIOR NOTED TO MID-ABD AREA WITH JACIEL. PRESENT IN ROOM. CALL LIGHT IS WITHIN REACH, PATIENT INSTRUCTED TO CALL FOR ASSISTANCE NEEDED.
[2018-08-31] MEDS ORDERED: POTASSIUM CHLORIDE 20 MEQ TAB CR PO NR (09:00)
[2018-08-31] MEDS: HYDROCHLOROTHIAZIDE 25 MG TAB PO SCH ×2 (09:12→17:10)
[2018-08-31] MEDS: FAMOTIDINE 20 MG/2 ML VIAL IV SCH ×2 (09:12→17:10)
[2018-08-31] MEDS ORDERED: LORAZEPAM INJ 2 MG/ML VIAL IV PRN (09:15)
[2018-08-31] MEDS: NIFEDIPINE CR 30 MG TAB PO SCH (09:18)
[2018-08-31] MEDS: METOPROLOL TARTRATE 25 MG TAB PO SCH ×3 (09:18→17:10)
[2018-08-31] MEDS: CEFEPIME 2 GM/NS 0.9% 100 ML 100 ML IV SCH ×2 (11:14→21:13)
[2018-08-31] MEDS ORDERED: SODIUM CHLORIDE 0.9% 250ML 250 ML ONE (12:03)
--- NOTE | 2018-08-31 14:07 | NUR ---
EDUCATION MATERIAL (COLOSTOMY ADULT, COLOSTOMY-ADULT CARE AFTER, COLOSTOMY HOME GUIDE, ) PROVIDED TO PATIENT ON COLOSTOMY CARE.
--- NOTE | 2018-08-31 19:06 | NUR ---
PATIENT IS IN STABLE CONDITION WITH NO S/S OF RESPIRATORY DISTRESS. NO PAIN VOICED. TELEMETRY APPLIED. PRESENT IN ROOM. CALL LIGHT IS WITHIN REACH, PATIENT INSTRUCTED TO CALL FOR ASSISTANCE NEEDED. BEDSIDE REPORT GIVEN TO ONCOMING NURSE.
--- NOTE | 2018-08-31 19:15 | NUR ---
patient received awake, alert, lying quietly in bed. no c/o pain noted. pm assessment complete. patient instructed to call for assistance when needed.
--- NOTE | 2018-08-31 19:18 | NUR ---
CALL PLACED OUT TO DR. WOLFE TO CLARIFY GI SOFT DIET ORDER START DATE. NIGHT NURSE INFORMED OF CALL.
[2018-08-31] MEDS ORDERED: MELATONIN 5 MG TABLET PO SCH (21:00)
[2018-09-01 00:48] VITALS: BP 118/68
[2018-09-01 03:20] LABS: BASOPHILS # (AUTO) 0.1 (0.0-0.1); BASOPHILS % 0.6 % (0.0-1.0); EOSINOPHILS # (AUTO) 0.4 (0.0-0.4); EOSINOPHILS % 3.2 % (0.0-6.0); HEMATOCRIT 41.9 % (38.2-49.6); HEMOGLOBIN 14.5 g/dL (14.0-18.0); LYMPHOCYTES # (AUTO) 1.9 (1.0-3.2); LYMPHOCYTES % 16.4 % (18.0-39.1); MEAN CORPUSCULAR HEMOGLOBIN 29.4 pg (28-32); MEAN CORPUSCULAR HGB CONC 34.6 g/dL (31-35); MONOCYTES # (AUTO) 1.2 (0.2-0.8); MONOCYTES % 10.1 % (4.4-11.3); NEUTROPHILS # (AUTO) 7.4 (2.1-6.9); NEUTROPHILS % 63.7 % (38.7-80.0); PLATELET COUNT 441 x10e3/uL (140-360); RED BLOOD COUNT 4.93 x10e6/uL (4.3-5.7); RED CELL DISTRIBUTION WIDTH 13.2 % (11.7-14.4)
[2018-09-01 03:47] LABS: ANION GAP 13.4 mmol/L (8-16); BLOOD UREA NITROGEN 12 mg/dL (7-26); BUN/CREATININE RATIO 12 (6-25); CALCIUM 9.4 mg/dL (8.4-10.2); CARBON DIOXIDE 24 mmol/L (22-29); CHLORIDE 103 mmol/L (98-107); CREATININE, SERUM 1.01 mg/dL (0.72-1.25); EST GLOMERULAR FILTRATION RATE > 60 ML/MIN (60-); GLUCOSE 107 mg/dL (74-118); POTASSIUM 3.4 mmol/L (3.5-5.1); SODIUM 137 mmol/L (136-145)
[2018-09-01 05:16] VITALS: BP 127/73
[2018-09-01] MEDS: METRONIDAZOLE 500MG/NS 100ML 100 ML IV SCH ×2 (05:33→11:13)
--- NOTE | 2018-09-01 06:50 | NUR ---
PATIENT IS AWAKE AND IN STABLE CONDITION WITH NO S/S OF RESPIRATORY DISTRESS. PATIENT DENIES PAIN. COLOSTOMY TO LLQ AND ZAINAB DRAIN TO RLQ; DRESSING TO MID-ABD IS DRY AND INTACT. TELEMETRY APPLIED. PRESENT IN ROOM. CALL LIGHT IS WITHIN REACH, PATIENT INSTRUCTED TO CALL FOR ASSISTANCE NEEDED.
[2018-09-01] MEDS: FAMOTIDINE 20 MG/2 ML VIAL IV SCH (08:02)
[2018-09-01] MEDS: HYDROCHLOROTHIAZIDE 25 MG TAB PO SCH (08:02)
[2018-09-01] MEDS: METOPROLOL TARTRATE 25 MG TAB PO SCH (08:03)
[2018-09-01] MEDS: NIFEDIPINE CR 30 MG TAB PO SCH (08:03)
--- NOTE | 2018-09-01 08:03 | NUR ---
PATIENT HAD TELEMETRY REMOVED SO HE COULD SHOWER. PATIENT IS OUT OF THE SHOWER AND REFUSES TO HAVE TELEMETRY LEADS PLACED ON HIM AGAIN. PATIENT EDUCATED ON IMPORTANCE OF TELEMETRY MONITORING. MORNING MEDICATIONS ADMINISTERED TO PATIENT.
--- NOTE | 2018-09-01 08:05 | NUR ---
DRESSINGS APPLIED FOR PATIENT OVER MID-ABD JÚNIOR/JACIEL AND AROUND ZAINAB DRAIN SITE.
[2018-09-01 08:58] VITALS: BP 151/78
[2018-09-01 09:03] VITALS: BP 151/78
--- NOTE | 2018-09-01 10:45 | NUR ---
JACIEL AND ZAINAB DRAIN REMOVED PER DR. WOLFE'S ORDER. ZAINAB HAD 10CC OUTPUT PRIOR TO REMOVAL.
[2018-09-01 11:49] VITALS: BP 139/63
[2018-09-01] MEDS ORDERED: POTASSIUM CHLORIDE 20 MEQ TAB CR PO ONE (12:26)
[2018-09-01] MEDS ORDERED: ESIDRIX25 MG PO (12:31)
[2018-09-01] MEDS ORDERED: METRONIDAZOLE500 MG PO (12:31)
[2018-09-01] MEDS ORDERED: NIFEDIPINE ER30 M1 PO (12:31)
[2018-09-01] MEDS ORDERED: LOPRESSOR25 MG PO (12:31)
[2018-09-01] MEDS ORDERED: CEFDINIR300 MG PO (12:31)
[2018-09-01] MEDS ORDERED: HYDROCHLOROTHIA25 MG PO (12:34)
[2018-09-01] MEDS ORDERED: POTASSIUM CHLO20 ME1 PO (12:34)
[2018-09-01] MEDS: CEFEPIME 2 GM/NS 0.9% 100 ML 100 ML IV SCH (12:44)
[2018-09-01] MEDS ORDERED: TYLENOL # 31 EA PO (13:09)
--- NOTE | 2018-09-01 14:56 | NUR ---
PATIENT DISCHARGE HOME- PATIENT OFF THE UNIT AT 1448 PER AMBULATION ACCOMPANIED BY RN TO THE PATIENT'S VEHICLE. PATIENT IN STABLE CONDITION WITH NO S/S OF RESPIRATORY DISTRESS. NO PAIN VOICED. COLOSTOMY BAG INTACT TO LLQ. DRESSINGS APPLIED TO LOWER MID-ABD SITE (BELOW JÚNIOR) AND RLQ SITE. DISCHARGE TEACHING, INSTRUCTIONS, AND MEDICATIONS GIVEN TO THE PATIENT. ALL PERSONAL ITEMS TAKEN WITH THE PATIENT AND HIS .
--- NOTE | 2018-09-02 06:17 | Discharge Summary ---
ADMISSION DIAGNOSES: Microperforated diverticulitis with sepsis, obesity, acute kidney injury. DISCHARGE DIAGNOSES: Microperforated diverticulitis with sepsis, obesity, acute kidney injury, anxiety, hypokalemia, status post sigmoid resection with end colostomy. Rule out CHF, sinus bradycardia and sinus tachycardia. HISTORY: None. SURGICAL HISTORY: None. FAMILY HISTORY: The patient's dad had diabetes. SOCIAL HISTORY: The patient admits to occasional alcohol use on weekends. HOSPITAL COURSE: A 48-year-old male complains of constant sharp abdominal pain that began Monday night. He had associated nausea, but denies vomiting or diarrhea. He complains of subjective chills, but did not take a temperature. Pain is worsened with urination and not improved by anything. On admission, the patient was started on cefepime and Flagyl. CT of the abdomen showed microperforated diverticulitis. No evidence of abscess formation. Surgery was consulted. The patient had an NG tube placed, IV fluids running and pain medicine. Two days later, a repeat CT was done to see if there was an improvement, but the CT showed perforated sigmoid diverticulitis with marked interval increase in pneumoperitoneum and reactive low abdominal inflammation. The patient was then taken to surgery on 08/27, and had a sigmoid resection with end colostomy placement. The patient tolerated procedure well. The patient began having tachycardia and complained of palpitations, so an EKG was done, which showed sinus bradycardia and the echo showed an EF of 65%. The patient was started on metoprolol, hydrochlorothiazide, and nifedipine for uncontrolled blood pressure. Heart rate is now running 60s and 70s. The patient will discharge home with potassium, nifedipine, Flagyl for 10 more days, metoprolol, hydrochlorothiazide, and Cipro for 10 more days. He will follow up with primary care in 1 to [address] Yeh in 1 week. The patient and family understand discharge instructions and agrees to plan. Vital signs stable. The patient afebrile. Dictated by Amrita Pina NP MD LAURITA Gonzalez/OMARL /[id number]
== END 2018-09-01 14:57 | disposition home or self-care (01) | DRG 854 ==
LOC: ER 18:05 → ERHOLD 23:04 → MED/SURG3 23:40
PROVIDERS: ADMIT Internal Medicine; ATTEND Internal Medicine
PROC: 0DTN0ZZ Resection of Sigmoid Colon, Open Approach (ICD-10-PCS; principal; 2018-08-27 14:00)
PROC: 0D1M0Z4 Bypass Descending Colon to Cutaneous, Open Approach (ICD-10-PCS; 2018-08-27 14:00)
DX: A41.9 Sepsis, unspecified organism (principal); K57.20 Diverticulitis of large intestine with perforation and abscess without bleeding; N17.9 Acute kidney failure, unspecified; K66.8 Other specified disorders of peritoneum; I10 Essential (primary) hypertension; Z88.0 Allergy status to penicillin; Z83.3 Family history of diabetes mellitus; E66.9 Obesity, unspecified; Z68.31 Body mass index [BMI] 31.0-31.9, adult; G47.00 Insomnia, unspecified; E87.6 Hypokalemia; F41.9 Anxiety disorder, unspecified; R00.0 Tachycardia, unspecified; R51 Headache
CPT/HCPCS: 36415; 74177; 80048; 80053; 81001; 82150; 83036; 83690; 83735; 83880; 84132; 84439; 85025; 88307; 93005; 93306; 99284; J0360; J0694; J1100; J1170; J2001; J2060; J2250; J2270; J2370; J2405; J3480; J7030; J7050; Q9967